=== PATIENT | male | born 2000 | race Caucasian/White ===

== ENCOUNTER 2020-03-22 05:22 | Day surgery (SDC) | payer BC, MEDICAID ==
[~2020-03-22] VITALS: Ht 185.4 cm; Wt 89.8 kg
[~2020-03-22 05:22] MED LIST: IBUPROFEN800 MG PO
[2020-03-22 06:10] VITALS: BP 126/63; Ht 185.4 cm; Wt 89.8 kg
[2020-03-22] MEDS ORDERED: VISTARIL50 MG PO (08:30)
[2020-03-22] MEDS ORDERED: PERCOCET 5-3251 TAB PO (08:30)
[2020-03-22] MEDS ORDERED: ZOFRAN ODT4 MG/UDTAB PO (08:31)
--- NOTE | 2020-03-23 11:08 | OP ---
PATIENT NAME: RISHABH TONY MEDICAL RECORD: [id number] :98 LOCATION:[facility] ADMISSION DATE: SURGEON: HANK YEE, DATE OF OPERATION: 03/22/2020 PROCEDURE PERFORMED: Left ankle lateral ligament reconstruction, Kristine. PREOPERATIVE DIAGNOSIS: Left ankle chronic instability. POSTOPERATIVE DIAGNOSIS: Left ankle chronic instability. INDICATIONS: Mr. Tony is a 19-year-old male who has rolled his left ankle a few times. He was tired of that and got an MRI that showed a thickened ATFL and Ashland's ligament indicating that he had chronic instability of left ankle. I informed him we could tighten that up and do a reconstruction sort to speak or repair of that ligament and give him some more stability with the risks of chronic instability, failure of the repair, blood clots, continued pain and instability, infection, bleeding, damage to nerves in the area specifically superficial peroneal nerve and sural nerve and he was okay with that and they signed the consent. SURGEON: Hank Yee MD DESCRIPTION OF PROCEDURE: The patient was taken to the operative suite, laid in the right lateral decubitus position with the left ankle up sedated and an LMA was placed. He received a block by anesthesia in the preoperative area prior to this. He was given 2 grams of Ancef preoperatively. The left lower extremity was then prepped and draped in sterile fashion. Timeout was performed. Everyone was in agreeance with the correct site, side, patient and procedure. I then began by exsanguinating the left lower extremity with the Esmarch and inflating the tourniquet to 350 mmHg, it was up for 50 minutes. I then made an oblique incision across the fibula from proximal posterior to distal anterior exposing the fibula. Careful dissection was made down to the distal fibula and I made a sharp dissection off the distal fibula from anterior to distally and noted the thickened Ashland's ligament and this was removed and debrided. I then put in one 4.5 JuggerKnot anchor anteriorly and 2.9 JuggerKnot on the fibula in a horizontal mattress fashion and Walter-Reza stitch as well, sutured up the ATFL as well as the CFL as well as the capsule. The talus was inspected and no lesions were seen in it prior to repairing that. I then brought that suture back to the periosteum, he had very thick periosteum and tied it down forming a nice repair of that capsule as well as the ligaments tightening them up nicely. I then used the other two limbs of the 2.9 and brought the inferior retinaculum up to the fibula and brought that over into a 2.9 anchor into the fibula. The tourniquet was then let down, any bleeding was coagulated with a pickup and Bovie. It was then closed by Maury Navarro, certified surgical wheelchair van operator first responder with 2-0 Vicryl in an inverted interrupted fashion and 2-0 Prolene in a horizontal mattress fashion. I then placed in a well-padded splint after dressing the site with Adaptic, 4 x 4s, ABD on the heel, cast padding and then a 4 x 30 splint posteriorly wrapped with an Saturnino wrap secured. He was then awakened and taken to recovery in stable condition. BLOOD LOSS: Minimal. COMPLICATIONS: None. OPERATIVE REPORT [id number] RISHABH TONY TRANSINT:[id number] Voice Confirmation ID: [id number] DOCUMENT ID: [id number] HANK YEE DO at 1108 CC: [id number] DICTATION DATE: 03/22/20 08 SPEECH THERAPY ASSISTANT: 03/22/20 1644 [facility] 03/22/20 [facility] [address] [place] [address]
== END 2020-03-22 10:29 | disposition home or self-care (01) ==
LOC: D.OPS 05:22 → D.PAN 07:00 → D.OPS 07:30
PROVIDERS: ATTEND Orthopaedic Surgery
DX: M25.372 Other instability, left ankle (principal)